=== PATIENT | female | born 1960 | race Caucasian/White ===

== ENCOUNTER → 2018-09-12 11:37 | Outpatient (CLI) | payer OTHER, SELFPAY ==
[2018-09-12 12:16] LABS: Influenza A and B by PCR Rapid Negative (Negative)
== END ==
PROVIDERS: PCP Family Medicine; Visit Provider Physician Assistant
DX: R68.89 Other general symptoms and signs (principal)
CPT/HCPCS: 87400

== ENCOUNTER → 2019-11-14 14:47 | Outpatient (CLI) | payer OTHER, SELFPAY ==
[2019-11-17 01:10] LABS: COVID19 Sendout Not Detected (Not Detected)
== END ==
PROVIDERS: PCP Family Medicine; Visit Provider Physician Assistant
DX: R68.89 Other general symptoms and signs (principal)
CPT/HCPCS: 87635

== ENCOUNTER → 2020-06-29 15:18 | Outpatient (CLI) | payer OTHER, SELFPAY ==
[2020-06-29 15:44] LABS: COVID19 -Nasal RAPID Negative (Negative)
== END ==
PROVIDERS: PCP Family Medicine; Referring Provider Physician Assistant; Visit Provider Physician Assistant
DX: Z11.59 Encounter for screening for other viral diseases (principal)
CPT/HCPCS: 87635

== ENCOUNTER 2020-11-23 12:57 | Observation (INO) | payer OTHER, SELFPAY ==
[2020-11-23] VITALS (11 sets, daily range): BP systolic 131–192; BP diastolic 63–103; PULSE 58–78; RESP 17–18; TEMP 36.1–36.7; O2SAT 95–99; BMI 48.3
--- NOTE | 2020-11-23 | DI.ECHO.S_ITS ---
[facility] +---------+ : : [address] : [address] : : : : [id number] : : : : Phone: [phone]+ Echocardiogram Report + + :Name: ROBERTA CHÁVEZ Study Date: 11/24/2020 Height: 67 in : :[facility] ReadingLocation: Weight: 308 lb: : Gender: Female BSA: 2.4 m2 : :: 1960 Age: 60 yrs : :Reason For Study: TIA : :Ordering Physician: JAD, : :CAIT SHERMAN Performed By: Akbar Cortés : :Referring: [address] : + + Interpretation Summary 1) Normal left ventricular thickness, size, wall motion, and systolic function (EF 60-65%). 2) Normal right ventricular size and function. 3) No significant valvular abnormalities. 4) Injection of contrast documented no interatrial shunt. 5) The ascending aorta is mildly enlarged at 3.8cm. 6) Compared to the Echo done 07/04/2017, no significant change. Procedure: The study quality was technically adequate. A two-dimensional transthoracic echocardiogram with color flow and Doppler was performed. A saline contrast injection was performed to assess for cardiac shunting. Comparison is made with the echocardiogram of 07/04/2017. The patient was in sinus rhythm with heart rates between 54-73 bpm during the exam. Left Ventricle: The left ventricle is normal in size and wall thickness. Left ventricular systolic function is normal. The ejection fraction is estimated to be 60-65%. There are no focal wall motion abnormalities. Diastolic parameters suggest probable normal left ventricular diastolic function and normal filling pressures. Right Ventricle: The right ventricle is normal in size and function. Atria: Both atria are normal in size. There is no Doppler evidence for an interatrial shunt. Injection of contrast documented no interatrial shunt. Mitral Valve: The mitral valve is normal in structure and function. There is no mitral regurgitation noted. Aortic Valve: The aortic valve is normal in structure and function. There is no aortic valve stenosis. No aortic regurgitation is present. Tricuspid Valve: The tricuspid valve is normal in structure and function. There is a trace or physiologic amount of tricuspid regurgitation. Right ventricular systolic pressure is estimated to be 20 mmHg plus the clinically estimated CVP which cannot be estimated on this exam. Pulmonic Valve: The pulmonic valve is not well visualized. There is no pulmonic valvular regurgitation. Great Vessels: The aortic root is normal size. The ascending aorta is mildly enlarged. The inferior vena cava was not visualized. Pericardium/ Pleura There is no pericardial effusion. There is no pleural effusion. MMode/2D Measurements & Calculations LVIDd: 5.4 cm LVOT diam: 2.0 cm LVIDs: 3.5 cm Ao root diam: 2.9 cm FS: 35.3 % asc Aorta Diam: 3.8 cm IVSd: 0.96 cm Ao Arch Diam (Prox Trans): 3.1 cm LVPWd: 0.72 cm LV mayorga. diameter/BSA (cm/m^2): 2.2 LV sys. diameter/BSA (cm/m^2): 1.4 LA A2 area: 21.0 cm2 RA long axis: 5.5 cm LA A4 area: 18.6 cm2 RA area: 16.2 cm2 LA length (vol): 5.7 cm RA vol: 40.4 ml LA vol: 58.7 ml RA : 16.6 ml/m2 LA vol index: 24.2 ml/m2 TAPSE: 2.6 cm Doppler Measurements & Calculations Ao V2 max: 182.5 cm/sec LVOT Max Jorge A: 147.1 cm/sec Ao V2 mean: 122.5 cm/sec LV V1 max P.7 mmHg Ao max P.3 mmHg LV V1 VTI: 32.3 cm Ao mean P.8 mmHg MELANIE(I,D): 2.8 cm2 Ao V2 VTI: 35.9 cm MELANIE(V,D): 2.5 cm2 sev ratio: 0.90 MELANIE indexed to BSA (cm^2/m^2): 1.1 MV E max jorge a: 103.0 cm/sec TR max jorge a: 225.2 cm/sec MV A max jorge a: 88.3 cm/sec TR max P.3 mmHg MV E/A: 1.2 PA pr(Accel): 38.8 mmHg Med Peak E' Jorge A: 8.9 cm/sec E/E' med: 11.6 Lat Peak E' Jorge A: 11.3 cm/sec E/E' lat: 9.1 E/e' average: 10.4 MV dec time: 0.27 sec SV(LVOT): 98.8 ml Reading Physician:12:04 PM
--- NOTE | 2020-11-23 13:50 | DI.CT.S_ITS ---
PROCEDURE: CT HEAD/BRAIN WO CON INDICATIONS: stroke, not TPA TECHNIQUE: Noncontrast 4.5 mm thick angled axial sections acquired from the foramen magnum to the vertex, with coronal and sagittal reformats. For radiation dose reduction, the following was used: automated exposure control, adjustment of mA and/or kV according to patient size. COMPARISON: None. FINDINGS Cerebrum, Cerebellum and Brainstem: No evidence of intracranial hemorrhage, mass effect or extra-axial fluid collections. There is appropriate cerebral and cerebellar volume. White matter attenuation is homogeneous. Anthony-white distinction is well preserved throughout the exam. Basal cisterns and foramen magnum are clear. Ventricles: Appropriate size and position. No evidence of hydrocephalus. Skull Base: The bony sella, pituitary gland and infundibulum are unremarkable. Clivus and craniovertebral relationships are appropriate. Visualized portions of the external auditory canals and tympanic cavity are within normal limits. Calvarium and Scalp: No scalp soft tissue swelling. The underlying calvarium is intact without skull fracture or lytic lesion. Paranasal Sinuses: Unremarkable as visualized. Mastoids: Incidental hypo pneumatization of the left mastoid noted. IMPRESSION: Unremarkable CT of the brain without current hemorrhage or mass effect. Dictated by: Taj Kenney M.D. on 11/23/2020 at 14:11 Approved by: Taj Kenney M.D. on 11/23/2020 at 14:22
--- NOTE | 2020-11-23 13:55 | ED.NEUROSD ---
HPI - Neuro Symptoms/Deficit General Chief Complaint: Neuro Symptoms/Deficit Stated Complaint: Thinks possible TIA last night, tongue thick feeli Time Seen by Provider: 11/23/20 13:47 Source: patient and family Mode of arrival: Ambulatory Limitations: no limitations History of Present Illness HPI Narrative: 60-year-old female former smoker with history hypertension, hyperlipidemia, BMI 40.3 with known carotid disease presents with a series of symptoms that started yesterday at about 515. It seems that they started rather suddenly in onset and include a numbness or heaviness of her tongue, slurring of speech, confusion, some visual disturbance and balance issues. She denies any extremity numbness, tingling or weakness. She denies any chest pain or shortness of breath. She has no nausea, vomiting or diarrhea. She denies any recent trauma or head injuries. She states she has been taking her medications as directed. She has been fully vaccinated against COVID-19. Her symptoms all resolved by the time she arrived here Related Data Home Medications Medication Instructions Recorded Confirmed albuterol sulfate 90 mcg/actuation 1 puff INHALATION Q4-6H PRN 02/09/18 07/26/20 aerosol inhaler buspirone 15 mg tablet 15 mg PO BID 02/09/18 07/26/20 fluoxetine 20 mg capsule 20 mg PO DAILY 02/09/18 07/26/20 gabapentin 300 mg capsule 300 mg PO DAILY 02/09/18 07/26/20 hydrochlorothiazide 25 mg tablet 25 mg PO DAILY 02/09/18 07/26/20 losartan 25 mg tablet 25 mg PO DAILY 02/09/18 07/26/20 omeprazole 20 mg capsule,delayed 20 mg PO DAILY 02/09/18 07/26/20 release apixaban 5 mg tablet 5 mg PO BID 07/26/20 07/26/20 metoprolol succinate 25 mg 25 mg PO BID 07/26/20 07/26/20 tablet,extended release 24 hr rosuvastatin 10 mg tablet 10 mg PO DAILY 07/26/20 07/26/20 Previous Rx's Medication Instructions Recorded metoclopramide HCl 10 mg PO TIDP PRN #30 tab 06/13/16 estradiol 1 mg tablet 1 mg PO DAILY #90 tab 07/26/20 Allergies Allergy/AdvReac Type Severity Reaction Status Date / Time adhesive tape [ADHESIVE TAPE] Allergy Unknown Verified 09/12/18 11:32 nickel Allergy Verified 09/12/18 11:32 lisinopril AdvReac Unknown Verified 06/29/20 15:08 diazepam AdvReac Verified 06/29/20 15:09 Review of Systems Constitutional Constitutional: Denies chills, Denies fatigue, Denies fever(s), Denies frequent falls, Denies lethargy and Denies weakness Eyes Eyes: Denies change in vision, Denies eye discharge, Denies irritation and Denies loss of vision ENT Ears, Nose, Mouth, and Throat: Denies change in voice, Denies dizziness, Denies neck pain, Denies sore throat and Denies throat swelling Cardiovascular Cardiovascular: Denies chest pain, Denies irregular heart rhythm, Denies lightheadedness, Denies palpitations, Denies dyspnea, Denies dyspnea on exertion and Denies orthopnea Respiratory Respiratory: Denies cough, Denies dyspnea, Denies dyspnea on exertion and Denies wheezing Gastrointestinal Gastrointestinal: Denies abdominal pain, Denies change in bowel habits, Denies diarrhea, Denies nausea and Denies vomiting Musculoskeletal Musculoskeletal: Denies neck pain and Denies numbness Integumentary/Breasts Skin/Breast: Denies pruritus, Denies erythema, Denies rash and Denies wounds Neurologic Neurologic: Denies behavioral changes, Denies confusion, Denies dizziness, Denies frequent falls, Denies loss of vision, Denies numbness and Denies weakness Psychiatric Psychiatric: Denies anxiety, Denies behavioral changes, Denies confusion, Denies depression, Denies homicidal ideation and Denies suicidal ideation Endocrine Endocrine: Denies fatigue, Denies flushing and Denies palpitations Hematologic/Lymphatic Hematologic/Lymphatic: Denies easy bruising Allergic/Immunologic Allergic/Immunologic: Denies urticaria, Denies throat swelling and Denies wheezing Patient History Surgical History (Updated 12/09/17 @ 05:03 by Conversion Provider) Status post cardiac catheterization Status post hysterectomy Status post laparoscopic cholecystectomy Social History Smoking Status: Former smoker Smoking Status: Former smoker Exam Narrative Exam Narrative: GENERAL: [60] year old patient appears stated age. Well-nourished, well-developed patient, in mild distress. HEAD: Atraumatic. Normocephalic. EYES: Pupils equal round and reactive. Extraocular motions intact. No scleral icterus. No injection or drainage. ENT: Nose without bleeding, purulent drainage. Throat without erythema, tonsillar hypertrophy or exudate. Airway patent. NECK: Trachea midline. Non tender CARDIOVASCULAR: Regular rate and rhythm without murmurs, gallops, or rubs. RESPIRATORY: Clear to auscultation. Breath sounds equal bilaterally. No wheezes, rales, or rhonchi. GASTROINTESTINAL: Abdomen soft, non-tender, nondistended. EXTREMITIES: No edema or joint tenderness. BACK: Nontender without deformity or crepitance. No flank tenderness. NEURO: AOx3. SKIN: No rash or erythema of visible areas Initial Vital Signs Initial Vital Signs: Vital Signs Temperature 98.0 F 11/23/20 13:15 Pulse Rate 69 11/23/20 13:15 Respiratory Rate 18 11/23/20 13:15 Blood Pressure 192/82 H 11/23/20 13:15 Pulse Oximetry 95 11/23/20 13:15 Scores ABCD2 Age >= 60 years: no Initial BP. Either SBP >= 140 or DBP >= 90.: yes Clinical features of the TIA: speech disturbance without weakness Duration of symptoms: >= 60 minutes History of diabetes: no ABCD2 Score: 4 NIH Stroke Scale Level of Conciousness: Alert, keenly responsive Ask month/age: Answers both questions correctly. Open/close eyes, close hand: Performs both tasks correctly Best gaze horizontal: Normal Visual zamora: No visual loss Facial palsy: Normal symetrical movement Left arm drift: No drift for full 10 sec Right arm drift: No drift for full 10 sec Left leg drift: No drift for full 5 sec Right leg drift: No drift for full 5 sec Limb ataxia: Absent Sensory on face/arms/legs: Normal, no sensory loss Best language: No aphasia, normal Dysarthria: Normal Extinction or inattention: No abnormality Total NIH Stroke scale score: 0 Course Orders Ordered: ED Orders 11/23/20 13:50 CT head/brain wo con Stat 11/23/20 13:58 Complete Blood Count AUTO DIFF Stat Comprehensive Metabolic Panel Stat NT-proBNP (BNP-Adult 18+) Stat Prothrombin Time INR Stat Troponin & CK Cardiac Panel Stat 11/23/20 15:08 COVID19 - ADMIT (PENS AND PENCILS REPAIRER swab/PCR) Stat Vital Signs Vital signs: Vital Signs - 8 hr 11/23/20 13:15 11/23/20 15:18 Temperature 98.0 F Pulse Rate 69 62 Respiratory Rate 18 Blood Pressure 192/82 H 159/70 H Pulse Oximetry 95 97 MDM - Neuro Symptoms/Deficit Lab Data Result diagrams: 11/23/20 13:58 11/23/20 13:58 Labs: Lab Results 11/23/20 11/23/20 11/23/20 Range/Units 13:58 13:58 13:58 WBC 5.1 (4.5-11.0) X10^3/uL RBC 4.27 (4.0-5.2) X10^6/uL Hgb 13.2 (12.0-16.0) g/dL Hct 39.5 (36-46) % MCV 92.6 (80-100) fL MCH 31.0 (26-34) PG MCHC 33.4 (30-36) % RDW 14.0 (11.6-14.8) % Plt Count 127 L (150-400) X10^3/uL Neut % (Auto) 57.8 (50-75) % Lymph % (Auto) 30.6 (25-40) % [place] % (Auto) 9.2 (3-14) % Eos % (Auto) 1.8 L (2-4) % Baso % (Auto) 0.6 (0-2) % Neut # (Auto) 3000 (8799-6339) /uL Lymph # (Auto) 1600 (4783-2574) /uL [place] # (Auto) 500 (0-900) /uL Eos # (Auto) 100 (0-450) /uL Baso # (Auto) 0 (0-100) /uL PT 14.2 H (10.1-12.7) SECONDS INR 1.2 (0.9-1.3) Sodium 135 L (137-145) mmol/L Potassium 4.1 (3.4-5.1) mmol/L Chloride 102 (98-107) mmol/L Carbon Dioxide 28 (22-32) mmol/L BUN 17 (7-17) mg/dL Creatinine 0.67 (0.52-1.04) mg/dL Estimated GFR > 60.0 (>60) mL/min BUN/Creatinine Ratio 25.4 H (6-22) Glucose 105 H (70-100) mg/dL Calcium 9.5 (8.4-10.2) mg/dL Total Bilirubin 1.1 (0.2-1.3) mg/dL AST 273 H (14-36) IU/L ALT 153 H (<35) IU/L Alkaline Phosphatase 169 H (38-126) U/L Total Creatine Kinase (30-135) U/L CK-MB (CK-2) (<2.37) ng/mL CK-MB (CK-2) Rel Index (1.5-5.0) % Troponin I (0.01-0.034) ng/mL NT-Pro-B Natriuret Pep 24 (<125) pg/mL Total Protein 7.4 (6.3-8.2) g/dL Albumin 4.1 (3.5-5.0) g/dL Globulin 3.3 (1.7-4.1) g/dL Albumin/Globulin Ratio 1.2 (1.0-2.8) / Range/Units 13:58 WBC (4.5-11.0) X10^3/uL RBC (4.0-5.2) X10^6/uL Hgb (12.0-16.0) g/dL Hct (36-46) % MCV (80-100) fL MCH (26-34) PG MCHC (30-36) % RDW (11.6-14.8) % Plt Count (150-400) X10^3/uL Neut % (Auto) (50-75) % Lymph % (Auto) (25-40) % [place] % (Auto) (3-14) % Eos % (Auto) (2-4) % Baso % (Auto) (0-2) % Neut # (Auto) (7684-5916) /uL Lymph # (Auto) (0650-5004) /uL [place] # (Auto) (0-900) /uL Eos # (Auto) (0-450) /uL Baso # (Auto) (0-100) /uL PT (10.1-12.7) SECONDS INR (0.9-1.3) Sodium (137-145) mmol/L Potassium (3.4-5.1) mmol/L Chloride (98-107) mmol/L Carbon Dioxide (22-32) mmol/L BUN (7-17) mg/dL Creatinine (0.52-1.04) mg/dL Estimated GFR (>60) mL/min BUN/Creatinine Ratio (6-22) Glucose (70-100) mg/dL Calcium (8.4-10.2) mg/dL Total Bilirubin (0.2-1.3) mg/dL AST (14-36) IU/L ALT (<35) IU/L Alkaline Phosphatase (38-126) U/L Total Creatine Kinase 191 H (30-135) U/L CK-MB (CK-2) 0.87 (<2.37) ng/mL CK-MB (CK-2) Rel Index 0.5 L (1.5-5.0) % Troponin I < 0.012 (0.01-0.034) ng/mL NT-Pro-B Natriuret Pep (<125) pg/mL Total Protein (6.3-8.2) g/dL Albumin (3.5-5.0) g/dL Globulin (1.7-4.1) g/dL Albumin/Globulin Ratio (1.0-2.8) Imaging Data CT scan - head: Radiologist's Impression: Serene Mccollum 60 F [address] [id number] Scan ReportSigned Patient: Serene Mccollum [facility]#: [id number]: 1960cct:[id number]/Sex: 60 / FDate of Service: 11/23/20Loc: EDAccession Number: [id number] Procedure: CT head/brain wo con Ordering Provider: Fidel Ro D.O. PROCEDURE: CT HEAD/BRAIN WO CON INDICATIONS: stroke, not TPA TECHNIQUE: Noncontrast 4.5 mm thick angled axial sections acquired from the foramen magnum to the vertex, with coronal and sagittal reformats. For radiation dose reduction, the following was used: automated exposure control, adjustment of mA and/or kV according to patient size. COMPARISON: None. FINDINGS Cerebrum, Cerebellum and Brainstem: No evidence of intracranial hemorrhage, mass effect or extra-axial fluid collections. There is appropriate cerebral and cerebellar volume. White matter attenuation is homogeneous. Anthony-white distinction is well preserved throughout the exam. Basal cisterns and foramen magnum are clear. Ventricles: Appropriate size and position. No evidence of hydrocephalus. Skull Base: The bony sella, pituitary gland and infundibulum are unremarkable. Clivus and craniovertebral relationships are appropriate. Visualized portions of the external auditory canals and tympanic cavity are within normal limits. Calvarium and Scalp: No scalp soft tissue swelling. The underlying calvarium is intact without skull fracture or lytic lesion. Paranasal Sinuses: Unremarkable as visualized. Mastoids: Incidental hypo pneumatization of the left mastoid noted. IMPRESSION: Unremarkable CT of the brain without current hemorrhage or mass effect. Dictated by: Taj Kenney M.D. on 11/23/2020 at 14:11 Approved by: Taj Kenney M.D. on 11/23/2020 at 14:22 Discharge Plan Departure Patient Disposition: Admitted as Observation Clinical Impression: Transient cerebral ischemia
[2020-11-23 14:01] LABS: Add Manual Diff / Slide Review NO; Basophils Absolute Auto 0 /uL (0-100); Basophils Percent Auto 0.6 % (0-2); Eosinophils Absolute Auto 100 /uL (0-450); Eosinophils Percent Auto 1.8 % (2-4); Hematocrit 39.5 % (36-46); Hemoglobin 13.2 g/dL (12.0-16.0); Lymphocytes Absolute Auto 1600 /uL (1100-4500); Lymphocytes Percent Auto 30.6 % (25-40); Mean Corpuscular HGB Conc 33.4 % (30-36); Mean Corpuscular Volume 92.6 fL (80-100); Monocytes Absolute Auto 500 /uL (0-900); Monocytes Percent Auto 9.2 % (3-14); Neutrophils Absolute Auto 3000 /uL (1500-7000); Neutrophils Percent Auto 57.8 % (50-75); Platelet Count 127 X10^3/uL (150-400); Red Blood Cell Count 4.27 X10^6/uL (4.0-5.2); White Blood Cell Count 5.1 X10^3/uL (4.5-11.0)
[2020-11-23 14:08] LABS: INR 1.2 (0.9-1.3); Prothrombin Time 14.2 SECONDS (10.1-12.7)
[2020-11-23 14:17] LABS: Creatine Kinase 191 U/L (30-135)
[2020-11-23 14:19] LABS: Alanine Aminotransferase 153 IU/L (<35); Albumin 4.1 g/dL (3.5-5.0); Albumin Globulin Ratio 1.2 (1.0-2.8); Alkaline Phosphatase 169 U/L (38-126); Aspartate Aminotransferase 273 IU/L (14-36); BUN Creatinine Ratio 25.4 (6-22); Bilirubin Total 1.1 mg/dL (0.2-1.3); Blood Urea Nitrogen 17 mg/dL (7-17); Calcium 9.5 mg/dL (8.4-10.2); Carbon Dioxide 28 mmol/L (22-32); Chloride 102 mmol/L (98-107); Estimated Glomerular Filt Rate > 60.0 mL/min (>60); Globulin 3.3 g/dL (1.7-4.1); Glucose 105 mg/dL (70-100); HEMOLYSIS 16 (0-50); Potassium 4.1 mmol/L (3.4-5.1); Sodium 135 mmol/L (137-145); Total Protein 7.4 g/dL (6.3-8.2)
[2020-11-23 14:27] LABS: NT-proBNP (BNP-Adult 18+) 24 pg/mL (<125)
[2020-11-23 14:29] LABS: Troponin I < 0.012 ng/mL (0.01-0.034)
[2020-11-23 14:33] LABS: CKMB % Relative Index 0.5 % (1.5-5.0); Creatine Kinase MB 0.87 ng/mL (<2.37)
[2020-11-23 16:59] LABS: COVID19 - ADMIT (NP swab/PCR) Negative (Negative)
[2020-11-23] MEDS: LORazepam 1 MG TABLET 2 MG PO (18:13)
--- NOTE | 2020-11-23 20:15 | PM.HP.1 ---
History of Present Illness History of Present Illness Date Patient Seen: 11/23/20 Time Patient Seen: 20:16 Chief complaint: Thinks possible TIA last night, tongue thick feeli Narrative: Serene Mccollum is a 60 y.o. female with a history of SVT, CAD, essential hypertension, hyperlipidemia, prediabetes, presented to the emergency department with a 1 day history of ?seeing stars? while she was at work. She states she grabbed a rail at work and then left to go home. She contacted her and her asked her sarcastic Alexsandra if she had been drinking because she was slurring her speech. She states she has been very tired, has had some nausea but no vomiting and has persistent and chronic diarrhea. Denies headaches, palpitations at present, does complain of having a dry tongue, shortness of breath, chest pain, dysurea, constipation or numbing and tingling of her extremities. States her lower extremities are always swollen. Patient states that in late 2019, she was admitted to [facility] and was worked up for SVT and found to be in atrial fibrillation. She was started on Eliquis. They did an MRI, complete echocardiogram, and she was connected to a navigating officer in [place] for outpatient follow-up. 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 Am awaiting paper records from that admission. She received the [employer] COVID-19 vaccine on October 20, 2020. CT of the head ordered in the ED was negative for any acute abnormalities. During the day they attempted to have the patient undergo a MR/MRA however the patient became quite anxious and would not go into the MRI unit. At the time of presentation to the ED her NIH scale was 0. Patient is afebrile, blood pressure 131/63, heart rate 78, respiratory rate 17, oxygen saturation of 98% on room air, she weighs 140 kg with a BMI of 48.3. She has a low platlet count of 127, w/no signs of active bleeding and a normal hemoglobin and hematocrit, sodium mildly below normal at 135, glucose at 105, A1c of 5.1. Liver enzimes are significantly elevated at with an AST of 273, ALT 153, alk phos 169, total creatinine kinase is 191, a CK-MB relative index of 0.5%, troponin is negative, proBNP is negative, and COVID 19 PCR is negative. Patient History Medical History (Updated 11/23/20 @ 21:09 by TG Tobias) Asthma Atrial fibrillation, chronic CAD (coronary artery disease) Depression Fibromyalgia History of cardioversion HLD (hyperlipidemia) Hx of supraventricular tachycardia Hx of syncope Morbid obesity with BMI of 45.0-49.9, adult STEVE on CPAP Trichomegaly with cataract and hereditary spherocytosis Surgical History Hx of cataract surgery Status post cardiac catheterization Status post hysterectomy Status post laparoscopic cholecystectomy Family & Social History Family History Mother Myocardial infarct Father Prediabetes FH: prostate cancer Social History: household members spouse Safety & Behavioral: Feels Safe in Current Yes Environment Been Physically Hurt or No Threatened By a Person Suicidal Ideation Description None Suicide Plan Description No Plan Tobacco & Substance use: Smoking Status Former smoker Substance Use Type does not use Meds Home Medications and Allergies Home Medications Medication Instructions Recorded Confirmed Type albuterol sulfate 90 mcg/actuation 1 puff INHALATION Q4-6H PRN 02/09/18 11/23/20 History aerosol inhaler buspirone 15 mg tablet 15 mg PO BID 02/09/18 11/23/20 History fluoxetine 20 mg capsule 20 mg PO DAILY 02/09/18 11/23/20 History gabapentin 300 mg capsule 300 mg PO DAILY 02/09/18 11/23/20 History hydrochlorothiazide 25 mg tablet 25 mg PO DAILY 02/09/18 11/23/20 History losartan 25 mg tablet 25 mg PO DAILY 02/09/18 11/23/20 History omeprazole 20 mg capsule,delayed 20 mg PO DAILY 02/09/18 11/23/20 History release apixaban 5 mg tablet 5 mg PO BID 07/26/20 11/23/20 History estradiol 1 mg tablet 1 mg PO DAILY #90 tab 07/26/20 11/23/20 Rx metoprolol succinate 25 mg 25 mg PO BID 07/26/20 11/23/20 History tablet,extended release 24 hr rosuvastatin 10 mg tablet 10 mg PO DAILY 07/26/20 11/23/20 History Allergies Allergy/AdvReac Type Severity Reaction Status Date / Time adhesive tape [ADHESIVE TAPE] Allergy Unknown Verified 11/23/20 16:15 nickel Allergy Verified 11/23/20 16:15 lisinopril AdvReac Unknown Verified 11/23/20 16:15 diazepam AdvReac Verified 11/23/20 16:15 Review of Systems Review of Systems ROS: Yes All systems reviewed with the patient and are negative except as otherwise documented Exam Vital Signs (past 8 hours): - 11/23/20 13:15 11/23/20 15:16 11/23/20 15:17 Temperature 98.0 F Pulse Rate 69 59 L Respiratory Rate 18 Blood Pressure 192/82 H 159/70 H Pulse Oximetry 95 98 97 11/23/20 15:18 11/23/20 15:30 11/23/20 15:31 Temperature Pulse Rate 62 60 62 Respiratory Rate 18 Blood Pressure 159/70 H 156/68 H Pulse Oximetry 97 97 97 11/23/20 16:00 11/23/20 16:01 11/23/20 16:15 Temperature 97.7 F Pulse Rate 63 61 58 L Respiratory Rate 18 Blood Pressure 156/65 H 179/103 H Pulse Oximetry 97 97 99 11/23/20 19:56 Temperature 98.0 F Pulse Rate 78 Respiratory Rate 17 Blood Pressure 131/63 Pulse Oximetry 98 Oxygen Delivery Method Room Air Oxygen Flow Rate 0 Narrative Exam Narrative: Gen: Alert, oriented, mobidly obese 60 y.o. female, mildly anxious but pleasant HEENT: normocephalic, atraumatic, conjunctiva clear, sclera non-icteric, oral mucosa pink and moist Neck: supple, full ROM, no JVD, trachea is midline Resp: Lungs CTA, non-labored breathing CV: RRR, no murmur or rubs Abd: soft, non-tender, normoactive BTs Skin: no lesions or rashes, dry and intact Neuro: Alert and oriented X 4 w/no focal deficits. Speech clear and coherent. Extremities: moves all 4 extremities, is ambulatory, negative Sangita?s sign Psyche: normal mood and affect. Objective Labs Result Diagrams: 11/23/20 13:58 11/23/20 13:58 Labs: Laboratory Results - last 24 hr 11/23/20 11/23/20 11/23/20 13:58 13:58 13:58 WBC 5.1 RBC 4.27 Hgb 13.2 Hct 39.5 MCV 92.6 MCH 31.0 MCHC 33.4 RDW 14.0 Plt Count 127 L Neut % (Auto) 57.8 Lymph % (Auto) 30.6 [place] % (Auto) 9.2 Eos % (Auto) 1.8 L Baso % (Auto) 0.6 Neut # (Auto) 3000 Lymph # (Auto) 1600 [place] # (Auto) 500 Eos # (Auto) 100 Baso # (Auto) 0 PT 14.2 H INR 1.2 Sodium 135 L Potassium 4.1 Chloride 102 Carbon Dioxide 28 BUN 17 Creatinine 0.67 Estimated GFR > 60.0 BUN/Creatinine Ratio 25.4 H Glucose 105 H Calcium 9.5 Total Bilirubin 1.1 AST 273 H ALT 153 H Alkaline Phosphatase 169 H Total Creatine Kinase CK-MB (CK-2) CK-MB (CK-2) Rel Index Troponin I NT-Pro-B Natriuret Pep 24 Total Protein 7.4 Albumin 4.1 Globulin 3.3 Albumin/Globulin Ratio 1.2 SARS-CoV-2 (PCR) 11/23/20 11/23/20 13:58 15:53 WBC RBC Hgb Hct MCV MCH MCHC RDW Plt Count Neut % (Auto) Lymph % (Auto) [place] % (Auto) Eos % (Auto) Baso % (Auto) Neut # (Auto) Lymph # (Auto) [place] # (Auto) Eos # (Auto) Baso # (Auto) PT INR Sodium Potassium Chloride Carbon Dioxide BUN Creatinine Estimated GFR BUN/Creatinine Ratio Glucose Calcium Total Bilirubin AST ALT Alkaline Phosphatase Total Creatine Kinase 191 H CK-MB (CK-2) 0.87 CK-MB (CK-2) Rel Index 0.5 L Troponin I < 0.012 NT-Pro-B Natriuret Pep Total Protein Albumin Globulin Albumin/Globulin Ratio SARS-CoV-2 (PCR) Negative Assessment & Plan Assessment & Plan narrative: Serene Mccollum is a 60 y.o. female with multiple medical problems who will be observed overnight for further workup and assessment of a TIA. Suspected TIA versus stroke, acute, present on admission -Cardiac telemetry -NIH score greater than 5 no -NIH scoring and neuro checks q 4 hours -Dual antiplatelet therapy: No Patient's daily aspirin was discontinued when she was started on apixaban -CTA w/contrast of the head and neck scheduled for 11/24/20. Patient states she will try to go into the MR scanner tomorrow if preferred -Complete Echo with bubble study for 11/24. She had a complete echo at [facility] and have requested it be pushed over to our system. -PT/OT/ST evaluation Thrombocytopenia, new and present on admission -Platelet count 127 in the setting of a normal platelet count in 2016 Elevated transaminases, unknown if acute, present on admission. 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 Depression/anxiety, chronic and present on admission -Continue home doses of fluoxetine 20 mg po daily and buspirone 15 g po bid Fibromyalgia, chronic -She takes gabapentin 300 mg prn at night for pain VTE prophylaxis: Wells risk score: [] [] Enoxaparin 40 mg subQ daily [] Bilateral SCDs Consults: none Patient is observation status as her stay is not likely to exceed 2 midnights. FEN: saline lock, heart healthy diet, BMP and magnesium in the am. Dispo: unknown at this time Code Status: Full code as discussed with patient Scores Wells' Criteria for PE Clinical signs and symptoms of DVT: No PE is #1 Dx or equally likely: No Heart rate > 100: No Immobilization at least 3 days or surg in previous 4 weeks: No History of PE or DVT: No Hemoptysis: No Malignancy w/Treatment within 6 months or palliative: No Wells' PE Score total: 0 Quality Stroke Onset of Symptoms Date: 11/22/20 Symptom Onset Unknown: Yes Contraindication Antithromb by Day Two: Contraindicated (Current thrombocytopenia) Rehab Services Assessed: Speech therapy VTE Deep Vein Thrombosis/Pulmonary Embolism Present on Admission: No MIPS - Admit I confirm the patient?s Advance Care Plan is present, Code status is documented, Surrogate decision maker is in patient?s record [If Yes, STOP here]: Yes
[2020-11-23 20:43] LABS: Hemoglobin A1C% w Est Avg Glu 5.1 % (4.0-6.0)
[2020-11-23] MEDS: METOPROLOL ER 25 MG TABLET PO (20:49)
[2020-11-23] MEDS: APIXABAN 5 MG TABLET PO (20:49)
[2020-11-23] MEDS: GABAPENTIN 300 MG CAPSULE PO (20:49)
[2020-11-23] MEDS: BUSPIRONE 15 MG TABLET PO (20:49)
--- NOTE | 2020-11-24 00:27 | PC.NURSE ---
patient is alert and oriented. NIH = 0. Breath sounds CTA with RA sat of 99%. HRR w/last telemetry reading documented at 2045 being SR. BP is high and 142/65 and has been trending high and is on antihypertensives due to history of HTN. Denies nausea. BT present and abdomen is soft. Denies dysuria, frequency or urgency with urination. Able to turn self in bed and is given SBA when out of bed for safety. Denies pain. Wearing bilateral calf SCD's. Fall risk score is moderate and bed alarm is activated.
[2020-11-24 05:37] LABS: Add Manual Diff / Slide Review NO; Basophils Absolute Auto 0 /uL (0-100); Basophils Percent Auto 0.6 % (0-2); Eosinophils Absolute Auto 100 /uL (0-450); Hematocrit 38.9 % (36-46); Hemoglobin 12.9 g/dL (12.0-16.0); Lymphocytes Absolute Auto 1500 /uL (1100-4500); Lymphocytes Percent Auto 36.6 % (25-40); Mean Corpuscular HGB Conc 33.2 % (30-36); Mean Corpuscular Hemoglobin 30.8 PG (26-34); Mean Corpuscular Volume 92.8 fL (80-100); Monocytes Absolute Auto 400 /uL (0-900); Monocytes Percent Auto 9.7 % (3-14); Neutrophils Absolute Auto 2100 /uL (1500-7000); Neutrophils Percent Auto 50.1 % (50-75); Platelet Count 123 X10^3/uL (150-400); Red Blood Cell Count 4.19 X10^6/uL (4.0-5.2); Red Cell Distribution Width 14.2 % (11.6-14.8); White Blood Cell Count 4.1 X10^3/uL (4.5-11.0)
[2020-11-24 05:49] LABS: Cholesterol 205 mg/dL (140-199); HDL Cholesterol 82 mg/dL (40-60); LDL Cholesterol Calculated 96 mg/dL (<100); Triglycerides 137 mg/dL (35-150)
[2020-11-24 05:50] LABS: Alanine Aminotransferase 125 IU/L (<35); Albumin 3.7 g/dL (3.5-5.0); Albumin Globulin Ratio 1.1 (1.0-2.8); Alkaline Phosphatase 138 U/L (38-126); Aspartate Aminotransferase 193 IU/L (14-36); BUN Creatinine Ratio 22.7 (6-22); Bilirubin Total 1.3 mg/dL (0.2-1.3); Bilirubin Unconjugated 1.3 mg/dL (0.0-1.1); Blood Urea Nitrogen 15 mg/dL (7-17); Calcium 9.2 mg/dL (8.4-10.2); Carbon Dioxide 28 mmol/L (22-32); Chloride 102 mmol/L (98-107); Estimated Glomerular Filt Rate > 60.0 mL/min (>60); Globulin 3.3 g/dL (1.7-4.1); Glucose 112 mg/dL (70-100); HEMOLYSIS < 15 (0-50); Potassium 4.1 mmol/L (3.4-5.1); Sodium 136 mmol/L (137-145)
[2020-11-24 05:56] VITALS: BP 138/87; PULSE 57; RESP 16; TEMP 36.7; O2SAT 98
[2020-11-24] MEDS: PANTOPRAZOLE 20 MG TABLET PO (06:00)
[2020-11-24 07:00] VITALS: O2SAT 98
--- NOTE | 2020-11-24 08:07 | DI.CT.S_ITS ---
PROCEDURE: CT ANGIO HEAD AND NECK INDICATIONS: TIA, hx of sign carotid artery disease TECHNIQUE: Pre-contrast 4.5 mm thick sections acquired from the foramen magnum to the vertex. After the administration of intravenous contrast, 1 mm thick sections acquired from the aortic arch through the [place]. Post-contrast 4.5 mm thick sections then re-acquired from the foramen magnum to the vertex. 3-dimensional [id number] (MIP) and/or volume rendering reformats were acquired of the central intracranial vasculature and neck separately. COMPARISON: [facility], CT, CT HEAD/BRAIN WO CON, 11/23/2020, 13:54. FINDINGS: Image quality: Excellent. BRAIN: CSF spaces: Ventricles are normal in size and shape. Basal cisterns are patent. No extra-axial fluid collections. Brain: No midline shift. No intracranial bleeds or masses. Anthony-white matter interface appears intact. Skull and face: Calvarium and facial bones appear intact, without suspicious lesions. Orbits appear normal. Sinuses: Sinuses and mastoids are clear. HEAD CT ANGIOGRAPHY: Anterior circulation: Intracranial internal carotid arteries are normal in flow. Atherosclerotic calcifications noted in the cavernous and clinoid segments of the internal carotid arteries bilaterally which causes [id number] stenosis. The flow within the paired anterior cerebral arteries is normal and symmetric. The flow within the middle cerebral arteries is normal and symmetric. The anterior communicating artery is seen. No aneurysms are seen. Posterior circulation: Visualized portions of the vertebral arteries demonstrate normal caliber, and join to form a normal appearing basilar artery. Flow within the posterior cerebral arteries is normal and symmetric. No aneurysms are seen. Dural sinuses demonstrate normal postcontrast enhancement. NECK CT ANGIOGRAPHY: Carotid system: The great vessels demonstrate a conventional anatomy as they arise from the aortic arch. The origins of the common carotid arteries appear patent. The common carotid arteries demonstrate normal caliber and courses. Minimal soft atherosclerotic plaque noted in the origins of the internal carotid arteries bilaterally which causes less than 50% stenosis of the vessels. Posterior circulation: The origins of the vertebral arteries both appear widely patent. Patient is right vertebral artery dominant. The more superior extracranial portions of both vertebral arteries also demonstrate normal courses and calibers. They join to form a normal appearing basilar artery. Soft tissues: Visualized neck soft tissues demonstrate no suspicious abnormalities. Bones: No suspicious bony lesions. Spine degenerative disc disease and facet arthropathy. Visualized cervical spine appears normally aligned. IMPRESSION: 1. No acute intracranial disease process. 2. No large vessel occlusion, hemodynamically significant vascular stenosis, vascular dissection or aneurysm. Any quantitative measurements of stenosis were performed using NASCET criteria. Dictated by: Alyssa Hinojosa MD, PhD on 11/24/2020 at 9:18 Approved by: Alyssa Hinojosa MD, PhD on 11/24/2020 at 9:32
[2020-11-24 08:15] VITALS: BP 141/68; PULSE 58; RESP 17; TEMP 37.1; O2SAT 98
[2020-11-24] MEDS: APIXABAN 5 MG TABLET PO (08:59)
[2020-11-24] MEDS: BUSPIRONE 15 MG TABLET PO (08:59)
[2020-11-24] MEDS: FLUoxetine 20 MG CAPSULE PO (08:59)
[2020-11-24 09:00] VITALS: BP 141/68; PULSE 58
[2020-11-24] MEDS: LOSARTAN 25 MG TABLET PO (09:00)
[2020-11-24] MEDS: METOPROLOL ER 25 MG TABLET PO (09:00)
[2020-11-24] MEDS: SODIUM CHLORIDE 0.9% FLUSH 10 ML IV (09:12)
--- NOTE | 2020-11-24 10:21 | P.DS_ITS ---
History of Present Illness History of Present Illness Date Patient Seen: 11/24/20 Time Patient Seen: 10:21 Chief complaint: Thinks possible TIA last night, tongue thick feeli Narrative: TG Weber: Serene Mccollum is a 60 y.o. female with a history of SVT, CAD, essential hypertension, hyperlipidemia, prediabetes, presented to the emergency department with a 1 day history of ?seeing stars? while she was at work. She states she grabbed a rail at work and then left to go home. She contacted her and her asked her sarcastic Alexsandra if she had been drinking because she was slurring her speech. She states she has been very tired, has had some nausea but no vomiting and has persistent and chronic diarrhea. Denies headaches, palpitations at present, does complain of having a dry tongue, shortness of breath, chest pain, dysurea, constipation or numbing and tingling of her extremities. States her lower extremities are always swollen. Patient states that in late 2019, she was admitted to [facility] and was worked up for SVT and found to be in atrial fibrillation. She was started on Eliquis. They did an MRI, complete echocardiogram, and she was connected to a international project engineer in [place] for outpatient follow-up. Review of her echocardiogram on her [employer] phone portal was negative with an EF of 60% and another document resulting either a carotid ultrasound or CT angio indicated a 50-75% occlusion of the right ICA and 45-50% occlusion of the left ICA. Am awaiting paper records from that admission. She received the Khris and Khris COVID-19 vaccine on October 20, 2020. CT of the head ordered in the ED was negative for any acute abnormalities. During the day they attempted to have the patient undergo a MR/MRA however the patient became quite anxious and would not go into the MRI unit. At the time of presentation to the ED her NIH scale was 0. Patient is afebrile, blood pressure 131/63, heart rate 78, respiratory rate 17, oxygen saturation of 98% on room air, she weighs 140 kg with a BMI of 48.3. She has a low platlet count of 127, w/no signs of active bleeding and a normal hemoglobin and hematocrit, sodium mildly below normal at 135, glucose at 105, A1c of 5.1. Liver enzimes are significantly elevated at with an AST of 273, ALT 153, alk phos 169, total creatinine kinase is 191, a CK-MB relative index of 0.5%, troponin is negative, proBNP is negative, and COVID 19 PCR is negative. Discharge Providers Provider Date of admission: 11/23/20 16:30 Discharge Date: 11/24/20 Primary care physician: Betsy Cruz MD Discharge provider: Juan Longoria DO Summary Hospital Course Discharge Diagnosis: TIA, acute, resolved prior to admission. Thrombocytopenia, new and present on admission Elevated transaminases, possibly acute, present on admission, improved Carotid artery stenosis and HLD, chronic Essential hypertension, currently well controlled Depression/anxiety, chronic and present on admission Fibromyalgia, chronic Hospital Course: This is a 60-year-old female with a past medical history of paroxysmal atrial fibrillation, symptomatic and SVT, moderate carotid artery stenosis, hypertension, STEVE, central obesity, tobacco use who presented to the emergency room after an episode of a slurred speech, vision changes, difficulties with word finding, and the sensation of a heavy feeling tongue that resolved prior to her arrival in the emergency room. Symptoms lasted for over an hour in total. She had a negative CT head without contrast in the emergency room, an MRI was attempted but the patient became very anxious and could not tolerate the MRI. Instead, a CT angiogram of the head and neck was performed the following morning which did not show evidence of an acute infarct, there was also only minimal bilateral carotid stenosis. Records from [facility] in [place] were reviewed, and it appears that she did have a prior episode of rectal bleeding, but this has apparently been stable on apixaban which was started for her paroxysmal AFib. Her symptoms likely represent a TIA, given current negative imaging with CT and CT angiogram of her head and neck MRI is not thought to change current management and not needed at this time. The patient was asymptomatic and did not have recurrence of her symptoms during her hospital stay. I would recommend increasing her rosuvastatin dose, but this can be deferred to discussion with her primary care provider as it was just recently started in May according to notes from her international project engineer. She also has a mildly elevated transaminase level, though this improved and may be related to alcohol or ANDREWS. The patient also reported her prior Khris and Khris vaccine on October 20, and her platelet count was notable to be slightly low at around 125,000. Previously these have been around 200,000 on previous lab values. Given reported neurological symptoms, and current cessation of the [place] on and Khris vaccine I have sent off a HIT antibody as these have been positive in all cases of immunogenic thrombocytopenia from the vaccine, though she is already on appropriate therapy with a DOAC. Would recommend follow up with PCP regarding this lab, as it will likely take a few days to result. Status at Discharge Cognitive/behavioral status at discharge: oriented Functional status at discharge: independent ambulation Overall status at discharge: patient is back to baseline Exam Vital Signs (past 8 hours): - 11/24/20 05:56 11/24/20 07:00 11/24/20 08:15 Temperature 98.0 F 98.7 F Pulse Rate 57 L 58 L Respiratory Rate 16 17 Blood Pressure 138/87 141/68 H Pulse Oximetry 98 98 98 11/24/20 09:00 Temperature Pulse Rate 58 L Respiratory Rate Blood Pressure 141/68 H Pulse Oximetry Oxygen Delivery Method Room Air Oxygen Flow Rate 0 Narrative Exam Narrative: Gen: Alert, oriented, mobidly obese 60 y.o. female, mildly anxious but pleasant HEENT: normocephalic, atraumatic, conjunctiva clear, sclera non-icteric, oral mucosa pink and moist CV: RRR Skin: no lesions or rashes, dry and intact Neuro: Alert and oriented X 4 w/no focal deficits. Speech clear and coherent. Extremities: moves all 4 extremities, is ambulatory Objective Labs Result Diagrams: 11/24/20 05:20 11/24/20 05:20 Labs: Laboratory Results - last 24 hr 11/23/20 11/23/20 11/23/20 13:58 13:58 13:58 WBC 5.1 RBC 4.27 Hgb 13.2 Hct 39.5 MCV 92.6 MCH 31.0 MCHC 33.4 RDW 14.0 Plt Count 127 L Neut % (Auto) 57.8 Lymph % (Auto) 30.6 [place] % (Auto) 9.2 Eos % (Auto) 1.8 L Baso % (Auto) 0.6 Neut # (Auto) 3000 Lymph # (Auto) 1600 [place] # (Auto) 500 Eos # (Auto) 100 Baso # (Auto) 0 PT 14.2 H INR 1.2 Sodium 135 L Potassium 4.1 Chloride 102 Carbon Dioxide 28 BUN 17 Creatinine 0.67 Estimated GFR > 60.0 BUN/Creatinine Ratio 25.4 H Glucose 105 H Hemoglobin A1c Calcium 9.5 Magnesium Total Bilirubin 1.1 Conjugated Bilirubin Unconjugated Bilirubin AST 273 H ALT 153 H Alkaline Phosphatase 169 H Total Creatine Kinase CK-MB (CK-2) CK-MB (CK-2) Rel Index Troponin I NT-Pro-B Natriuret Pep 24 Total Protein 7.4 Albumin 4.1 Globulin 3.3 Albumin/Globulin Ratio 1.2 Triglycerides Cholesterol LDL Cholesterol, Calc HDL Cholesterol SARS-CoV-2 (PCR) 11/23/20 11/23/20 11/23/20 13:58 13:58 13:58 WBC RBC Hgb Hct MCV MCH MCHC RDW Plt Count Neut % (Auto) Lymph % (Auto) [place] % (Auto) Eos % (Auto) Baso % (Auto) Neut # (Auto) Lymph # (Auto) [place] # (Auto) Eos # (Auto) Baso # (Auto) PT INR Sodium Potassium Chloride Carbon Dioxide BUN Creatinine Estimated GFR BUN/Creatinine Ratio Glucose Hemoglobin A1c 5.1 Calcium Magnesium 2.0 Total Bilirubin Conjugated Bilirubin Unconjugated Bilirubin AST ALT Alkaline Phosphatase Total Creatine Kinase 191 H CK-MB (CK-2) 0.87 CK-MB (CK-2) Rel Index 0.5 L Troponin I < 0.012 NT-Pro-B Natriuret Pep Total Protein Albumin Globulin Albumin/Globulin Ratio Triglycerides Cholesterol LDL Cholesterol, Calc HDL Cholesterol SARS-CoV-2 (PCR) 11/23/20 11/24/20 11/24/20 15:53 05:20 05:20 WBC 4.1 L RBC 4.19 Hgb 12.9 Hct 38.9 MCV 92.8 MCH 30.8 MCHC 33.2 RDW 14.2 Plt Count 123 L Neut % (Auto) 50.1 Lymph % (Auto) 36.6 [place] % (Auto) 9.7 Eos % (Auto) 3.0 Baso % (Auto) 0.6 Neut # (Auto) 2100 Lymph # (Auto) 1500 [place] # (Auto) 400 Eos # (Auto) 100 Baso # (Auto) 0 PT INR Sodium 136 L Potassium 4.1 Chloride 102 Carbon Dioxide 28 BUN 15 Creatinine 0.66 Estimated GFR > 60.0 BUN/Creatinine Ratio 22.7 H Glucose 112 H Hemoglobin A1c Calcium 9.2 Magnesium Total Bilirubin Conjugated Bilirubin Unconjugated Bilirubin AST ALT Alkaline Phosphatase Total Creatine Kinase CK-MB (CK-2) CK-MB (CK-2) Rel Index Troponin I NT-Pro-B Natriuret Pep Total Protein Albumin Globulin Albumin/Globulin Ratio Triglycerides Cholesterol LDL Cholesterol, Calc HDL Cholesterol SARS-CoV-2 (PCR) Negative 11/24/20 11/24/20 05:20 05:20 WBC RBC Hgb Hct MCV MCH MCHC RDW Plt Count Neut % (Auto) Lymph % (Auto) [place] % (Auto) Eos % (Auto) Baso % (Auto) Neut # (Auto) Lymph # (Auto) [place] # (Auto) Eos # (Auto) Baso # (Auto) PT INR Sodium Potassium Chloride Carbon Dioxide BUN Creatinine Estimated GFR BUN/Creatinine Ratio Glucose Hemoglobin A1c Calcium Magnesium Total Bilirubin 1.3 Conjugated Bilirubin 0.0 Unconjugated Bilirubin 1.3 H AST 193 H ALT 125 H Alkaline Phosphatase 138 H Total Creatine Kinase CK-MB (CK-2) CK-MB (CK-2) Rel Index Troponin I NT-Pro-B Natriuret Pep Total Protein 7.0 Albumin 3.7 Globulin 3.3 Albumin/Globulin Ratio 1.1 Triglycerides 137 Cholesterol 205 H LDL Cholesterol, Calc 96 HDL Cholesterol 82 H SARS-CoV-2 (PCR) PFSH Medical History (Updated 11/23/20 @ 21:09 by TG Tobias) Asthma Atrial fibrillation, chronic CAD (coronary artery disease) Depression Fibromyalgia History of cardioversion HLD (hyperlipidemia) Hx of supraventricular tachycardia Hx of syncope Morbid obesity with BMI of 45.0-49.9, adult STEVE on CPAP Trichomegaly with cataract and hereditary spherocytosis Surgical History Hx of cataract surgery Status post cardiac catheterization Status post hysterectomy Status post laparoscopic cholecystectomy Family History Mother Myocardial infarct Father Prediabetes FH: prostate cancer Social History (Updated 11/23/20 @ 21:52 by TG Tobias) household members: spouse Smoking Status: Former smoker alcohol intake: current additional social history: Sister is LETICIA Herrera Discharge Plan Discharge Plan Patient Disposition: Home Provider Discharge Comment: You were admitted to the hospital after a possible TIA. Nothing was found on CT or CT angiogram performed the following morning. You had no recurrence of symptoms and your heart did not have any arrythmias here. No medication changes are currently recommended, although I would discuss with your PCP about possibly increasing your current dose of rosuvastatin. Please follow up with your Primary care provider as previously scheduled. Discharge orders & Medications Prescriptions: Continued losartan [Cozaar] 25 mg tablet 25 mg PO DAILY RF: 0 gabapentin [Neurontin] 300 mg capsule 300 mg PO DAILY RF: 0 omeprazole 20 mg capsule,delayed release(DR/EC) 20 mg PO DAILY RF: 0 hydrochlorothiazide 25 mg tablet 25 mg PO DAILY RF: 0 albuterol sulfate 90 mcg/actuation HFA aerosol inhaler 1 puff INHALATION Q4-6H PRN (Reason: Wheezing) RF: 0 fluoxetine [Prozac] 20 mg capsule 20 mg PO DAILY RF: 0 buspirone 15 mg tablet 15 mg PO BID RF: 0 metoprolol succinate 25 mg tablet extended release 24 hr 25 mg PO BID RF: 0 rosuvastatin 10 mg tablet 10 mg PO DAILY RF: 0 Eliquis 5 mg tablet 5 mg PO BID RF: 0 estradiol 1 mg tablet 1 mg PO DAILY Qty: 90 RF: 3 Follow up/Referrals: Betsy Cruz MD [Primary Care Provider] - Diet/Activity/Treatments Diet: Diet as Tolerated and Low-sodium Activity: As tolerated Discharge Data Primary Care Provider: Betsy Cruz Attending Provider: Juan Longoria Stroke Onset of Symptoms Date: 11/22/20 Symptom Onset Unknown: Yes Contraindication Antithromb by Day Two: Contraindicated (Current throm bocytopenia) Rehab Services Assessed: Speech therapy VTE Deep Vein Thrombosis/Pulmonary Embolism Present on Admission: No
--- NOTE | 2020-11-24 11:49 | PC.NURSE ---
Pt A &O x3, VSS, afebrile, on RA. SB on telemetry 58. Pt denies SOB, JAIMES, vision disturbances, altered sensation. Facial symmetry, tongue midline, no droop and clear speech NIH score of 0 this a.m. Able to ambulate around room with steady gait. Echo and CT angiogram completed this a.m. Pt cleared for discharge per MD. Patient IV dc'd. She verbalizes understanding of follow up instructions and medications. She is escorted out of hospital via w/ch to private vehicle with all belongings.
[2020-11-24 12:00] VITALS: BP 139/66; PULSE 60; RESP 16; TEMP 36.5; O2SAT 99
--- NOTE | 2020-11-24 13:10 | CM.DANOTE ---
Discharge Planning/Care Management DCP: assessment: case received, EMR reviewed and met with pt during Team Rounds. Introduced self and role. Pt is a 60 year old female who admitted yesterday late afternoon to [facility] of hospitalist team. PCP: Betsy Cruz Payer: [facility] Dr. Longoria explained that he and spoken earlier with pt and that she was aware that she would be ok'd for d/c today. Pt confirmed that her son would be picking her up at d/c. A ECHO was to be done prior to d/c. P: home today CM Discharge Assessment Start: 11/24/20 13:08 Freq: Status: Active Protocol: Document 11/24/20 13:09 ITV (Rec: 11/24/20 13:10 ITV [id number]) Discharge Planning Assessment Advance Directives? No History Provided By Patient,Medical Record Independent with ADL's Yes Is patient alert and oriented? Yes
== END 2020-11-24 13:00 | disposition home or self-care (01) ==
LOC: ED 15:47 → AC 16:31
PROVIDERS: Nurse Practitioner Family; Admitting Provider Internal Medicine; Emergency Provider Emergency Medicine; PCP Internal Medicine; Referring Provider Emergency Medicine; Visit Provider Internal Medicine
DX: R29.818 Other symptoms and signs involving the nervous system (principal); R74.01 Elevation of levels of liver transaminase levels; D69.6 Thrombocytopenia, unspecified; I65.29 Occlusion and stenosis of unspecified carotid artery; I48.0 Paroxysmal atrial fibrillation; I25.10 Atherosclerotic heart disease of native coronary artery without angina pectoris; I10 Essential (primary) hypertension; E78.5 Hyperlipidemia, unspecified; R73.03 Prediabetes; F41.9 Anxiety disorder, unspecified; F32.9 Major depressive disorder, single episode, unspecified; M79.7 Fibromyalgia; Z20.822 Contact with and (suspected) exposure to COVID-19; Z79.01 Long term (current) use of anticoagulants
CPT/HCPCS: 36415; 70450; 70496; 70498; 80048; 80053; 80061; 80076; 82550; 82553; 83036; 83735; 83880; 84484; 85025; 85610; 86022; 87635; 93005; 93010; 93306; 99284; C9803; G0378; A9270; Q9967

== ENCOUNTER → 2021-04-23 12:52 | Outpatient (CLI) | payer OTHER, SELFPAY ==
[2020-11-23 17:53] VITALS: BMI 48.3
[2021-04-23 14:15] LABS: COVID19 -Nasal RAPID POSITIVE (Negative)
== END ==
PROVIDERS: PCP Internal Medicine; Visit Provider Nurse Practitioner Family
DX: U07.1 COVID-19 (principal)
CPT/HCPCS: 87635

== ENCOUNTER → 2021-07-12 12:44 | Outpatient (CLI) | payer OTHER, SELFPAY ==
[2020-11-23 17:53] VITALS: BMI 48.3
[2021-07-12 13:50] LABS: COVID19 -Nasal RAPID Negative (Negative)
== END ==
PROVIDERS: PCP Internal Medicine; Referring Provider Physician Assistant; Visit Provider Physician Assistant
DX: R05.9 Cough, unspecified (principal); R09.81 Nasal congestion; R51.9 Headache, unspecified
CPT/HCPCS: 87635

== ENCOUNTER 2021-12-14 13:59 | Emergency (ER) | payer OTHER, SELFPAY ==
[2020-11-23 17:53] VITALS: BMI 48.3
[2021-12-14] VITALS (13 sets, daily range): BP systolic 141–164; BP diastolic 65–74; PULSE 51–62; RESP 17–28; TEMP 36.4; O2SAT 96–98; BMI 40.7
--- NOTE | 2021-12-14 14:47 | DI.RAD.S_ITS ---
PROCEDURE: XR CHEST 1V INDICATIONS: Chest pain TECHNIQUE: One view of the chest was acquired. COMPARISON: None. FINDINGS: Surgical changes and devices: None. Lungs and pleura: Lungs are clear. No pleural effusions or pneumothorax. Mediastinum: Mediastinal contours appear normal. Heart size is normal. Bones and chest wall: No suspicious bony lesions. Overlying soft tissues appear unremarkable. IMPRESSION: No acute cardiopulmonary process demonstrated radiographically. Dictated by: David Beaver M.D. on 12/14/2021 at 15:44 Approved by: David Beaver M.D. on 12/14/2021 at 15:44
--- NOTE | 2021-12-14 15:05 | ED_ITS ---
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 She states that she has had a low-grade retrosternal squeezing chest pressure for upwards of 2-3 weeks. She denies any obvious provocation, palliation or radiation. She denies any other symptoms other than generalized fatigue which she seems to think started soon after starting flecainide. She denies dizziness, weakness or lightheadedness. She denies any exertional component to her symptoms. She states she was told her EKG appears different today than it did prior to starting the flecainide which is part of why they wanted her sent in. Related Data Home Medications Medication Instructions Recorded Confirmed albuterol sulfate 90 mcg/actuation 1 puff INHALATION Q4-6H PRN 02/09/18 07/12/21 aerosol inhaler buspirone 15 mg tablet 15 mg PO BID 02/09/18 07/12/21 fluoxetine 20 mg capsule (Prozac) 20 mg PO DAILY 02/09/18 07/12/21 gabapentin 300 mg capsule 300 mg PO DAILY 02/09/18 07/12/21 (Neurontin) hydrochlorothiazide 25 mg tablet 25 mg PO DAILY 02/09/18 07/12/21 losartan 25 mg tablet (Cozaar) 25 mg PO DAILY 02/09/18 07/12/21 omeprazole 20 mg capsule,delayed 20 mg PO DAILY 02/09/18 07/12/21 release apixaban 5 mg tablet (Eliquis) 5 mg PO BID 07/26/20 07/12/21 metoprolol succinate 25 mg 25 mg PO BID 07/26/20 07/12/21 tablet,extended release 24 hr rosuvastatin 10 mg tablet 10 mg PO DAILY 07/26/20 07/12/21 Previous Rx's Medication Instructions Recorded estradiol 1 mg tablet See Rx Instructions .ROUTE 08/20/21 .COMPLEX #90 tab Allergies Allergy/AdvReac Type Severity Reaction Status Date / Time adhesive tape [ADHESIVE TAPE] Allergy Unknown Verified 07/12/21 12:37 nickel Allergy Verified 07/12/21 12:37 lisinopril AdvReac Unknown Verified 07/12/21 12:37 diazepam AdvReac Verified 07/12/21 12:37 Review of Systems Review of Systems Narrative: GENERAL: Denies chills, fatigue, malaise, fever, sweats. HEENT: Denies sinus pain, ear pain, sore throat, difficulty swallowing, dizziness. RESPIRATORY: Denies dyspnea, cough, wheezing, hemoptysis, sputum. CARDIOVASCULAR: See HPI GASTROINTESTINAL: Denies nausea, vomiting, abdominal pain, diarrhea, constipation, melena. : Denies dysuria, frequency, incontinence, hematuria, urinary retention. MUSCULOSKELETAL: denies weakness, joint pain, or bony pain SKIN: Denies rash, skin lesions, or other NEUROLOGIC: Denies weakness, headache, numbness, change in speech, confusion, seizures, incoordination. PSYCHIATRIC: No concerning psychosocial issues. 12 point review of systems is negative except for those stated above Patient History Medical History Asthma Atrial fibrillation, chronic CAD (coronary artery disease) Depression Fibromyalgia History of cardioversion HLD (hyperlipidemia) Hx of supraventricular tachycardia Hx of syncope Morbid obesity with BMI of 45.0-49.9, adult STEVE on CPAP Sinusitis Trichomegaly with cataract and hereditary spherocytosis Surgical History Hx of cataract surgery Status post cardiac catheterization Status post hysterectomy Status post laparoscopic cholecystectomy Family History Mother Myocardial infarct Father Prediabetes FH: prostate cancer Social History household members: spouse Smoking Status: Former smoker alcohol intake: current additional social history: Sister is LETICIA Herrera Smoking Status: Former smoker Substance Use Type: does not use Exam Narrative Exam Narrative: GENERAL: [61] year old patient appears stated age. Well-developed patient, in mild distress. HEAD: Atraumatic. Normocephalic. EYES: Pupils equal round and reactive. Extraocular motions intact. No scleral icterus. No injection or drainage. ENT: Nose without bleeding, purulent drainage. Throat without erythema, tonsillar hypertrophy or exudate. Airway patent. NECK: Trachea midline. Non tender CARDIOVASCULAR: Regular rate and rhythm without murmurs, gallops, or rubs. RESPIRATORY: Clear to auscultation. Breath sounds equal bilaterally. No wheezes, rales, or rhonchi. GASTROINTESTINAL: Abdomen soft, non-tender, nondistended. EXTREMITIES: No edema or joint tenderness. BACK: Nontender without deformity or crepitance. No flank tenderness. NEURO: AOx3. SKIN: No rash or erythema of visible areas Initial Vital Signs Initial Vital Signs: Vital Signs Temperature 97.6 F 12/14/21 14:41 Pulse Rate 61 12/14/21 14:41 Respiratory Rate 18 12/14/21 14:41 Blood Pressure 141/74 H 12/14/21 14:41 Pulse Oximetry 98 12/14/21 14:41 Course Orders Ordered: ED Orders 12/14/21 14:47 XR chest 1V Stat EKG-12 Lead Stat 12/14/21 15:00 Complete Blood Count AUTO DIFF Stat Comprehensive Metabolic Panel Stat Lipase Stat Magnesium Stat Partial Thromboplastin Time Stat Prothrombin Time INR Stat Troponin & CK Cardiac Panel Stat Vital Signs Vital signs: Vital Signs - 8 hr 12/14/21 14:41 Temperature 97.6 F Pulse Rate 61 Respiratory Rate 18 Blood Pressure 141/74 H Pulse Oximetry 98 MDM - Chest Pain Lab Data Result diagrams: 12/14/21 15:00 12/14/21 15:00 Labs: Lab Results 12/14/21 12/14/21 12/14/21 Range/Units 15:00 15:00 15:00 WBC 4.2 L (4.5-11.0) X10^3/uL RBC 4.24 (4.0-5.2) X10^6/uL Hgb 12.9 (12.0-16.0) g/dL Hct 37.4 (36-46) % MCV 88.3 (80-100) fL MCH 30.5 (26-34) PG MCHC 34.5 (30-36) % RDW 13.8 (11.6-14.8) % Plt Count 123 L (150-400) X10^3/uL Neut % (Auto) 56.8 (50-75) % Lymph % (Auto) 32.0 (25-40) % [place] % (Auto) 7.7 (3-14) % Eos % (Auto) 2.6 (2-4) % Baso % (Auto) 0.9 (0-2) % Neut # (Auto) 2400 (5705-3491) /uL Lymph # (Auto) 1400 (9115-6903) /uL [place] # (Auto) 300 (0-900) /uL Eos # (Auto) 100 (0-450) /uL Baso # (Auto) 0 (0-100) /uL PT 13.1 H (10.1-12.7) SECONDS INR 1.2 (0.9-1.3) APTT 33 (26.4-36.2) SECONDS D-Dimer (<230) ng/mL Sodium 140 (137-145) mmol/L Potassium 3.7 (3.4-5.1) mmol/L Chloride 107 (98-107) mmol/L Carbon Dioxide 29 (22-32) mmol/L BUN 20 H (7-17) mg/dL Creatinine 0.71 (0.52-1.04) mg/dL Estimated GFR > 60 (>60) mL/min BUN/Creatinine Ratio 28.2 H (6-22) Glucose 111 H (80-110) mg/dL Calcium 8.6 (8.4-10.2) mg/dL Magnesium 1.9 (1.6-2.3) mg/dL Total Bilirubin 0.7 (0.2-1.3) mg/dL AST 65 H (14-36) IU/L ALT 56 H (<35) IU/L Alkaline Phosphatase 126 (38-126) U/L Total Creatine Kinase 167 H (30-135) U/L CK-MB (CK-2) 1.00 (<2.37) ng/mL CK-MB (CK-2) Rel Index 0.6 L (1.5-5.0) % Troponin I < 0.012 (0.01-0.034) ng/mL Total Protein 7.0 (6.3-8.2) g/dL Albumin 3.8 (3.5-5.0) g/dL Globulin 3.2 (1.7-4.1) g/dL Albumin/Globulin Ratio 1.2 (1.0-2.8) Lipase 114 (23-300) U/L 12/14/21 Range/Units 15:00 WBC (4.5-11.0) X10^3/uL RBC (4.0-5.2) X10^6/uL Hgb (12.0-16.0) g/dL Hct (36-46) % MCV (80-100) fL MCH (26-34) PG MCHC (30-36) % RDW (11.6-14.8) % Plt Count (150-400) X10^3/uL Neut % (Auto) (50-75) % Lymph % (Auto) (25-40) % [place] % (Auto) (3-14) % Eos % (Auto) (2-4) % Baso % (Auto) (0-2) % Neut # (Auto) (9182-2327) /uL Lymph # (Auto) (0031-2154) /uL [place] # (Auto) (0-900) /uL Eos # (Auto) (0-450) /uL Baso # (Auto) (0-100) /uL PT (10.1-12.7) SECONDS INR (0.9-1.3) APTT (26.4-36.2) SECONDS D-Dimer 357 H (<230) ng/mL Sodium (137-145) mmol/L Potassium (3.4-5.1) mmol/L Chloride (98-107) mmol/L Carbon Dioxide (22-32) mmol/L BUN (7-17) mg/dL Creatinine (0.52-1.04) mg/dL Estimated GFR (>60) mL/min BUN/Creatinine Ratio (6-22) Glucose (80-110) mg/dL Calcium (8.4-10.2) mg/dL Magnesium (1.6-2.3) mg/dL Total Bilirubin (0.2-1.3) mg/dL AST (14-36) IU/L ALT (<35) IU/L Alkaline Phosphatase (38-126) U/L Total Creatine Kinase (30-135) U/L CK-MB (CK-2) (<2.37) ng/mL CK-MB (CK-2) Rel Index (1.5-5.0) % Troponin I (0.01-0.034) ng/mL Total Protein (6.3-8.2) g/dL Albumin (3.5-5.0) g/dL Globulin (1.7-4.1) g/dL Albumin/Globulin Ratio (1.0-2.8) Lipase (23-300) U/L MDM Narrative Medical decision making narrative: Multiple causes of chest pain considered including CT, PE, pneumothorax, pneumonia, aortic dissection, and pleurisy. Patient reports no radiation, no diaphoresis, no provocation with exertion, and no vomiting Patient's symptoms improved over duration of stay with above-stated therapies. Findings and discharge diagnosis discussed with patient/family followed by verbalization of understanding Return precautions discussed with patient/family whom verbalize understanding. Discharge Plan Departure Patient Disposition: Home Clinical Impression: Atypical chest pain Instructions: DI for Atypical Chest Pain Activity Restrictions/Additional Instructions: *You have been diagnosed with [atypical chest pain. As we discussed your labs, imaging and EKGs are unremarkable. I have contacted your wood floor layer and shared the details of your visit and they recommend discharging you and following closely *What to do: *Please continue to take your regular medications as directed. [ ] New medication prescriptions sent to your pharmacy: [ ] [ ] New medication written as a paper prescription [x ] No new medications given *Please follow up with your primary care provider in 2-3 days, call for an a ppointment. Let them know you were seen in the Emergency Department and that we ask that you be seen in follow up. We will electronically transmit a record of today's note if your PCP is in our system *If you do not have a primary care provider please contact the [facility] Resource line at [phone]. They will ask some questions about your medical history and help get you set up with a doctor in the community. *Return to Emergency Department if you should have any new, worsening or c oncerning symptoms, such as [fever greater than 101 F, shaking chills, worsening pain, persistent vomiting or other bothersome symptoms] Prescriptions: No Action estradiol 1 mg tablet See Rx Instructions .ROUTE .COMPLEX Qty: 90 3RF Dose Instruction: TAKE ONE TABLET BY MOUTH ONCE DAILY Rx Instructions: TAKE ONE TABLET BY MOUTH ONCE DAILY losartan [Cozaar] 25 mg tablet 25 mg PO DAILY 0RF gabapentin [Neurontin] 300 mg capsule 300 mg PO DAILY 0RF omeprazole 20 mg capsule,delayed release(DR/EC) 20 mg PO DAILY 0RF hydrochlorothiazide 25 mg tablet 25 mg PO DAILY 0RF albuterol sulfate 90 mcg/actuation HFA aerosol inhaler 1 puff INHALATION Q4-6H PRN (Reason: Wheezing) 0RF fluoxetine [Prozac] 20 mg capsule 20 mg PO DAILY 0RF buspirone 15 mg tablet 15 mg PO BID 0RF metoprolol succinate 25 mg tablet extended release 24 hr 25 mg PO BID 0RF rosuvastatin 10 mg tablet 10 mg PO DAILY 0RF Eliquis 5 mg tablet 5 mg PO BID 0RF Referrals: Betsy Cruz MD [Primary Care Provider] -
[2021-12-14 15:08] LABS: Add Manual Diff / Slide Review NO; Basophils Absolute Auto 0 /uL (0-100); Basophils Percent Auto 0.9 % (0-2); Eosinophils Absolute Auto 100 /uL (0-450); Eosinophils Percent Auto 2.6 % (2-4); Hematocrit 37.4 % (36-46); Hemoglobin 12.9 g/dL (12.0-16.0); Lymphocytes Absolute Auto 1400 /uL (1100-4500); Mean Corpuscular HGB Conc 34.5 % (30-36); Mean Corpuscular Hemoglobin 30.5 PG (26-34); Mean Corpuscular Volume 88.3 fL (80-100); Monocytes Absolute Auto 300 /uL (0-900); Monocytes Percent Auto 7.7 % (3-14); Neutrophils Absolute Auto 2400 /uL (1500-7000); Neutrophils Percent Auto 56.8 % (50-75); Platelet Count 123 X10^3/uL (150-400); Red Blood Cell Count 4.24 X10^6/uL (4.0-5.2); Red Cell Distribution Width 13.8 % (11.6-14.8); White Blood Cell Count 4.2 X10^3/uL (4.5-11.0)
[2021-12-14 15:16] LABS: INR 1.2 (0.9-1.3); PTT Partial Thromboplastin Tim 33 SECONDS (26.4-36.2); Prothrombin Time 13.1 SECONDS (10.1-12.7)
[2021-12-14 15:17] LABS: Alanine Aminotransferase 56 IU/L (<35); Albumin 3.8 g/dL (3.5-5.0); Albumin Globulin Ratio 1.2 (1.0-2.8); Alkaline Phosphatase 126 U/L (38-126); Aspartate Aminotransferase 65 IU/L (14-36); BUN Creatinine Ratio 28.2 (6-22); Bilirubin Total 0.7 mg/dL (0.2-1.3); Blood Urea Nitrogen 20 mg/dL (7-17); Calcium 8.6 mg/dL (8.4-10.2); Carbon Dioxide 29 mmol/L (22-32); Chloride 107 mmol/L (98-107); Creatine Kinase 167 U/L (30-135); Estimated Glomerular Filt Rate > 60 mL/min (>60); Globulin 3.2 g/dL (1.7-4.1); Glucose 111 mg/dL (80-110); HEMOLYSIS < 15 (0-50); Lipase 114 U/L (23-300); Magnesium 1.9 mg/dL (1.6-2.3); Potassium 3.7 mmol/L (3.4-5.1); Sodium 140 mmol/L (137-145)
[2021-12-14 15:29] LABS: Troponin I < 0.012 ng/mL (0.01-0.034)
[2021-12-14 15:33] LABS: CKMB % Relative Index 0.6 % (1.5-5.0)
[2021-12-14 15:45] LABS: D Dimer 357 ng/mL (<230)
== END 2021-12-14 18:07 | disposition home or self-care (01) ==
PROVIDERS: Emergency Provider Emergency Medicine; PCP Internal Medicine
DX: R07.89 Other chest pain (principal)
CPT/HCPCS: 36415; 71045; 80053; 82550; 82553; 83690; 83735; 84484; 85025; 85379; 85610; 85730; 93005; 93010; 99284